=== PATIENT | female | born 1960 | race African-American/Black ===

== ENCOUNTER 2018-01-03 17:55 | Emergency (ER) | payer OTHER ==
[2018-01-03] MEDS ORDERED: Acetaminophen 500 MG TAB ONE (18:18)
--- NOTE | 2018-01-03 19:08 | RAD ---
CHEST TWO VIEWS: 01/03/18 HISTORY: Cough and fever. Heart size and mediastinum are within normal limits. The lungs are clear. of infiltrates. No signific ant bony findings. IMPRESSION: No active intrathoracic disease. POS: [facility]
== END 2018-01-03 18:56 | disposition home or self-care (01) ==
LOC: SCSER 17:55
DX: J20.9 Acute bronchitis, unspecified (principal); Z79.899 Other long term (current) drug therapy
CPT/HCPCS: 71046; 87804

== ENCOUNTER 2018-02-03 08:36 | Outpatient (CLI) | payer OTHER ==
--- NOTE | 2018-02-04 15:14 | MMO ---
BILATERAL MAMMOGRAMS: HISTORY: Screening mammography. COMPARISON: 09/15/15. FINDINGS: Scattered fibroglandular densities and benign-appearing calcifications are again demonstrated. There is no dominant mass or suspicious calcifications. The study was evaluated with the assistance of co wiliuter-aided detection. IMPRESSION: BI-RADS category 1. Negative. Suggest routine followup. BIRADS 1: Negative Routine annual screening mammography (for women over age 40) POS: [facility]
== END 2018-02-03 08:37 | disposition home or self-care (01) ==
LOC: SCSMAMMO 08:36
PROVIDERS: ATTEND Family Medicine
DX: Z12.31 Encounter for screening mammogram for malignant neoplasm of breast (principal)
CPT/HCPCS: 77067

== ENCOUNTER 2019-03-19 08:06 | Outpatient (CLI) | payer BC ==
--- NOTE | 2019-03-19 09:24 | MMO ---
Bilateral MAMMO Bilat Screen [facility]. CLINICAL HISTORY: Patient is 58 years old and is seen for screening. The patient has the following family history of breast cancer: aunt. The patient has no personal history of cancer. VIEWS: The views performed were: bilateral craniocaudal and bilateral mediolateral oblique. FILMS COMPARED: The present examination has been compared to prior imaging studies performed at [facility] on 09/15/2015 and 02/03/2018. This study has been interpreted with the assistance of computer-aided detection. MAMMOGRAM FINDINGS: There are scattered fibroglandular densities. There are stable benign appearing calcifications seen in both breasts. There are no suspicious masses, suspicious calcifications, or new areas of architectural distortion. IMPRESSION: THERE IS NO MAMMOGRAPHIC EVIDENCE OF MALIGNANCY. A ROUTINE FOLLOW-UP MAMMOGRAM IN 1 YEAR IS RECOMMENDED. ACR BI-RADS Category 2 - Benign finding MAMMOGRAPHY NOTE: 1. A negative mammogram report should not delay a biopsy if a dominant of clinically suspicious mass is present. 2. Approximately 10% to 15% of breast cancers are not detected by mammography. 3. Adenosis and dense breasts may obscure an underlying neoplasm.
== END 2019-03-19 08:07 | disposition home or self-care (01) ==
LOC: SCSMAMMO 08:06
PROVIDERS: ATTEND Family Medicine
DX: Z12.31 Encounter for screening mammogram for malignant neoplasm of breast (principal); Z80.3 Family history of malignant neoplasm of breast
CPT/HCPCS: 77067

== ENCOUNTER 2019-05-13 13:33 | Emergency (ER) | payer BC, SELFPAY ==
[~2019-05-13 13:33] MED LIST: Iopamidol 300 61% 100 ML VIAL FS ONE
[2019-05-13] MEDS ORDERED: Acetaminophen 500 MG TAB ONE (14:20)
[2019-05-13 14:24] LABS: #Basophils 0.1 thou/uL (0.0-0.2); #Eosinphils 0.1 thou/uL (0.0-0.7); #Lymphocytes 2.8 thou/uL (1.20-3.40); #Monocytes 0.7 thou/uL (0.11-0.59); #Neutrophils 6.7 thou/uL (1.40-6.50); %Basophils 0.8 % (0.0-1.0); %Eosinophils 1.3 % (0.0-10.0); %Monocytes 6.5 % (0.0-10.0); %Neutrophils 64.5 % (42.0-75.0); Hemoglobin 12.1 g/dL (12.0-16.0); Mean Corpuscular HGB CONC 33.5 g/dL (32.0-36.0); Mean Corpuscular Hemoglobin 31.4 pg (27.0-31.0); Mean Corpuscular Volume 93.6 fL (78.0-98.0); Mean Platelet Volume 7.8 fL (7.4-10.4); Platelet Count 296 thou/uL (130-400); RBC Distribution Width 12.2 % (11.5-14.5); Red Blood Cell (RBC) Count 3.86 mill/uL (4.20-5.40); White Blood Cell (WBC) Count 10.3 thou/uL (4.8-10.8)
[2019-05-13 14:34] LABS: ALT (SGPT) 16 U/L (8-55); AST (SGOT) 12 U/L (5-34); Albumin 3.7 g/dL (3.5-5.0); Alkaline Phosphatase 72 U/L (40-150); Anion Gap 14 mmol/L (10-20); BUN (Urea Nitrogen) 9 mg/dL (9.8-20.1); Bilirubin, Total 0.4 mg/dL (0.2-1.2); Calc. Creatinine Clearance 0 mL/min (70-130); Carbon Dioxide 27 mmol/L (22-29); Chloride 101 mmol/L (98-107); Estimated GFR-MDRD Greater than 90; Globulin 3.4 g/dL (2.4-3.5); Glucose 96 mg/dL (70-105); Potassium 3.2 mmol/L (3.5-5.1); Protein, Total 7.1 g/dL (6.0-8.3); Sodium 139 mmol/L (136-145)
[2019-05-13] MEDS ORDERED: Potassium Chloride 20 MEQ TAB ONE (14:44)
--- NOTE | 2019-05-13 15:20 | CT ---
CT ABDOMEN AND PELVIS WITH IV CONTRAST: HISTORY: Abdominal pain FINDINGS: The lung bases are clear. A small hiatal hernia is present. The liver, spleen, pancreas, adrenal glan ds and right kidney are normal. A 16.5 mm exophytic cyst is seen arising from the posterior aspect of the left kidney. No calcific gallstones are seen. There is colonic diverticulosis with thickening of the sigmoid colon and pericolonic inflammatory roxy nges consistent with sigmoid diverticulitis. No loculated fluid collection is seen to suggest abscess formation. No free air or free fluid or lymphadenopathy is seen in the abdomen or pelvis. [place] is present. There is no evidence of aneurysmal dilatation of the abdominal aorta. Degenerative changes are noted in the spine. IMPRESSION: 1. Sigmoid diverticulitis. 2. Small hiatal hernia. 3. Left renal cyst.
== END 2019-05-13 15:52 | disposition home or self-care (01) ==
LOC: SCSER 13:33
DX: K57.32 Diverticulitis of large intestine without perforation or abscess without bleeding (principal); E87.6 Hypokalemia; N28.1 Cyst of kidney, acquired; E78.5 Hyperlipidemia, unspecified; E11.9 Type 2 diabetes mellitus without complications; F17.210 Nicotine dependence, cigarettes, uncomplicated; I10 Essential (primary) hypertension
CPT/HCPCS: 74177; 80053; 83605; 83690; 85025; 96360; Q9967